=== PATIENT | female | born 1995 | race Caucasian/White ===

== ENCOUNTER 2016-05-16 15:43 | Emergency (ER) | payer BC ==
[2016-05-16] MEDS ORDERED: IOPAMIDOL 370 (76%) 100 ML VIAL IV ONE (15:44)
[2016-05-16 17:11] LABS: ABSOLUTE NEUTROPHIL COUNT 12.2 K/mm3 (1.8-7.7); BASO % 0.3 % (0.2-1.0); EOS # 0.2 (0.0-0.5); EOS % 1.5 % (0.9-2.9); HEMATOCRIT 37.9 % (37.0-47.0); HEMOGLOBIN 11.7 gm/l (12.0-16.0); IMM NEUT # 0.1 K/mm3 (0-0.2); IMM NEUT% 0.5 % (0-1); LYMPH # 2.3 (1.0-4.8); LYMPH % 14.8 % (15-45); MEAN CELL VOLUME 86.7 fl (81.0-99.0); MEAN CORPUSCULAR HEMOGLOBIN 26.8 pg (27.0-31.0); MEAN CORPUSCULAR HGB CONC 30.9 g/dl (33.0-37.0); MEAN PLATELET VOLUME 9.9 fl (7.4-10.4); MONO # 0.7 (0.0-0.8); MONO % 4.2 % (4-12); NEUT % 78.7 % (43-75); PLATELET COUNT 347 K/mm3 (130-400); RED CELL DISTRIBUTION WIDTH 14.6 % (11.5-14.5)
[2016-05-16 17:21] LABS: ALB/GLOB RATIO 1.1 (>1.0); ALBUMIN 3.7 gm/dL (3.5-5.7); ALT/SGPT 19 U/L (7-52); BLOOD UREA NITROGEN 13 mg/dL (7-25); BUN/CREATININE RATIO 19 (6-20); CALCIUM 9.1 mg/dL (8.6-10.3)
--- NOTE | 2016-05-16 18:12 | CT ---
CTA CHEST FOR PE COMPARISON: Chest 2 views, 05/16/2016 HISTORY: Hemoptysis. Patchy airspace disease within the left upper and lower lobe. Technique: Intravenous injection 80 mL [id number]. Using a [employer] Aquilion [address] scanner, following a CT angiogram protocol, images obtained through the thorax. Under concurrent supervision and interpretation, requiring a separate 3-D workstation, the technologist created 3-D CT angiograms. An automated dose reduction technique was used to minimize patient radiation dose. Dose information: CTDIvol (mGy): 9.60, 42.30, 50.90 DLP(mGycm): 1687.00 FINDINGS: Pulmonary arteries and veins: Excellent contrast opacification. No pulmonary embolism. Aorta: Normal Heart and coronary arteries: Normal. Lungs: Diffuse airspace opacity throughout the left lung. Normal right lung. Trachea and bronchi: Normal. Mediastinum and joel: Normal. Pleura and pericardium: Normal. Chest wall: Normal. Spine: Degenerative changes. The thoracic spine chronic moderate disc herniation with osteophytes. Upper abdomen:Normal. 3-D CT angiogram: Normal. IMPRESSION: 1. CT pulmonary angiogram negative for pulmonary embolism. 2. Diffuse infiltrate throughout the left lung. Evidence of pneumonia. 3. 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 The report was sent to the emergency department electronic medical record system 05/16/2016 at 18:14
== END 2016-05-16 18:46 | disposition home or self-care (01) ==
LOC: ED 15:43
DX: J18.9 Pneumonia, unspecified organism (principal); R04.2 Hemoptysis
CPT/HCPCS: 84703; 85025; 80053; 71275; 99283 ×2; Q9967